=== PATIENT | female | born 1950 | race Caucasian/White ===

== ENCOUNTER → 2017-03-25 | Outpatient (CLI) | payer OTHER ==
--- NOTE | ~2017-03-25 | CR166 ---
[facility] A Service of [facility] & [facility] RADIOLOGY TEXT RESULTS PATIENT: HALI ADAMES LOCATION: [facility] : 54 UNIT #: [id number] AGE: [address]: Karan Navarro MD SEX: F ORDER DR: [id number] [facility] [address] [place], [place] [address] [id number] O MR#: [id number] Acc #: [id number] NAME: HALI ADAMES : 1950 SEX: F STUDY DATE/TIME: 03/25/2017 12:57 UNIT: [facility] ROOM: STUDY DESCRIPTION: CR Knee 1 View Lt Attending Physician: Karan Navarro M.D. Referring Physician: Karan Navarro M.D. Ordering Physician: Karan Navarro M.D. Primary Care Physician: Karli Mayo M.D. MEDICAL IMAGING REPORT This report is preliminary unless electronic signature is present EXAM Left knee, 1 view, 03/25/2017, 1257 hours. CLINICAL HISTORY Patient fell 2 months ago. Stabbing pain in both knees. FINDINGS Single sunrise view of the left knee is not optimally positioned. No subluxation or significant spurring is suggested. IMPRESSION Single sunrise view is not optimally positioned. No definite subluxation or significant spurring is seen. Dictated by... Basilia Jones M.D. THIS IS AN ELECTRONICALLY VERIFIED REPORT Basilia Jones M.D. at 03/26/2017 8:41 PM RODNEY/david TD: 03/26/2017 15:03 JOB #: [id number] MEDICAL IMAGING REPORT Page 1 of 1 COPY
--- NOTE | ~2017-03-25 | CR173 ---
[facility] A Service of [facility] RADIOLOGY TEXT RESULTS PATIENT: HALI ADAMES LOCATION: [facility] : 54 UNIT #: [id number] AGE: [address]: Karan Navarro MD SEX: F ORDER DR: [id number] [facility] [address] [place], [place] [address] [id number] O MR#: [id number] Acc #: [id number] NAME: HALI ADAMES : 1950 SEX: F STUDY DATE/TIME: 03/25/2017 12:56 UNIT: [facility] ROOM: STUDY DESCRIPTION: CR Knee 3 Views Rt Attending Physician: Karan Navarro M.D. Referring Physician: Karan Navarro M.D. Ordering Physician: Karan Navarro M.D. Primary Care Physician: Karli Mayo M.D. MEDICAL IMAGING REPORT This report is preliminary unless electronic signature is present EXAM Right knee, 3 views, 03/25/2017, 1256 hours. CLINICAL HISTORY Bilateral knee pain for 2 months described as stabbing pain. Patient fell 2 months ago. COMPARISON None. FINDINGS Standing AP and cross-table lateral views of the knee were performed with sunrise view. Patient required two technologist for assistance to stand for the exam. There is a small to moderate suprapatellar bursa effusion without fracture. There is severe medial joint space loss and mild sclerosis in the subarticular bone without significant spurring. No fracture or loose body is seen. IMPRESSION 1. Moderate knee joint effusion with no fracture. 2. Severe medial compartment joint space loss with mild endplate sclerosis but no significant spurring, fracture, or loose body seen. Dictated by... Basilia Jones M.D. THIS IS AN ELECTRONICALLY VERIFIED REPORT Basilia Jones M.D. at 03/26/2017 8:41 PM SMM/tmw [facility] A Service of [facility] RADIOLOGY TEXT RESULTS PATIENT: HALI ADAMES LOCATION: [facility] : 54 UNIT #: [id number] AGE: [address]: Karan Navarro MD SEX: F ORDER DR: TD: 03/26/2017 15:00 JOB #: [id number] MEDICAL IMAGING REPORT Page 1 of 1 COPY
== END | disposition home or self-care (01) ==
LOC: CRAD 12:23
DX: M25.561 Pain in right knee (principal); M25.562 Pain in left knee; M25.462 Effusion, left knee; M25.461 Effusion, right knee; M89.9 Disorder of bone, unspecified
CPT/HCPCS: 73560; 73562